=== PATIENT | female | born 1985 | race Caucasian/White ===

== ENCOUNTER → 2017-12-11 14:12 | Outpatient (CLI) | payer SELFPAY ==
[2017-12-11 15:41] LABS: Absolute Lymphocyte Count 1.39 X10^3/ul (0.83-4.51); Absolute Neutrophil Count 5.6 X10^3/uL (2.0-7.7); Basophil# 0.02 X10^3/uL; Basophil% 0.3 % (0-1); Eosinophil# 0.16 X10^3/uL; Eosinophils% 2.1 % (0-5); Hematocrit 37.2 % (37-47); Hemoglobin 12.6 g/dl (12.0-15.0); Lymphocyte # 1.39 X10^3/ul (4.0); Lymphocyte % 18.1 % (19-41); Mean Corp Hgb Conc 33.9 g/gl (32-36); Mean Corpuscular Hgb 28.4 pg (27.0-32.0); Mean Corpuscular Volume 83.8 fL (81-99); Monocyte# 0.51 X10^3/uL; Monocyte% 6.6 % (0-10); Neutrophil % 72.8 % (47-70); Platelet Count 260 K/mm3 (150-450); RBC Distribution Width CV 13.8 % (11.6-14.6); RBC Distribution Width SD 42.3 fl (35.1-43.9); Red Blood Count 4.44 M/mm3 (4.2-5.4); White Blood Count 7.7 K/mm3 (4.4-11.0)
[2017-12-11 15:43] LABS: POSITIVE COUNT NO; POSITIVE DIFFERENTIAL NO; POSITIVE MORPHOLOGY NO
[2017-12-11 15:49] LABS: Color, Urine Yellow (Yellow); Glucose, Dipstick Normal (Normal); Ketone-Dipstick Negative (Negative); Leukocyte Esterase-Dipstick 25 /ul (Negative); Nitrite-Dipstick Negative (Negative); Occult Blood-Urine 10 /ul (Negative); Protein-Dipstick Negative (Negative); Urine Bilirubin Dipstick Negative (Negative); Urine Clarity Clear (Clear); Urine Urobilinogen Normal (Normal)
[2017-12-11 17:17] LABS: Chlamydia Trachomatis by PCR Negative (Negative); Neisserai gonorrhoeae by PCR Negative (Negative); Probe Check PASS; Sample Adequacy Control PASS; Specimen Processing Control PASS
[2017-12-12 02:59] LABS: Prenatal RPR NONREACTIVE (NONREACTIVE)
[2017-12-12 10:53] LABS: HIV - WCH Non-Reactive (Nonreactive); Rubella IgG > 500.0 IU/mL
[2017-12-14 06:24] LABS: HEPATITIS B SURFACE AG Negative (Negative); Hep C Antibodies <0.1 s/co ratio (0.0-0.9)
[2017-12-16 15:09] LABS: HPV Reflexed? NOT INDICATED
== END ==
PROVIDERS: Visit Provider Obstetrics & Gynecology
DX: Z34.81 Encounter for supervision of other normal pregnancy, first trimester (principal); Z12.4 Encounter for screening for malignant neoplasm of cervix; Z11.3 Encounter for screening for infections with a predominantly sexual mode of transmission
CPT/HCPCS: 36415; 81002; 85025; 86703; 86762; 86803; 87340; 87491; 87591; 88175; G0145

== ENCOUNTER → 2018-05-12 20:37 | Outpatient (CLI) | payer OTHER, SELFPAY ==
[2018-05-12 22:32] LABS: Group B Strep DNA By PCR Negative (Negative)
[2018-05-12 22:33] LABS: Internal Control PASS; Probe Check PASS; Specimen Processing Control PASS
== END ==
PROVIDERS: Visit Provider Obstetrics & Gynecology
DX: Z36.85 Encounter for antenatal screening for Streptococcus B (principal)
CPT/HCPCS: 87081; 87653

== ENCOUNTER 2018-06-04 13:35 | Inpatient (IN) | payer SELFPAY ==
[2018-06-04 14:09] VITALS: BMI 37.0
[2018-06-04] MEDS: Lactated Ringers 1,000 ML 50 ML IV ×2 (14:30→16:10)
[2018-06-04 14:47] LABS: Hematocrit 36.5 % (37-47); Hemoglobin 12.5 g/dl (12.0-15.0); Mean Corp Hgb Conc 34.2 g/gl (32-36); Mean Corpuscular Hgb 28.5 pg (27.0-32.0); Mean Corpuscular Volume 83.1 fL (81-99); Mean Platelet Vol. 9.5 fl (6.2-12.0); Platelet Count 235 K/mm3 (150-450); RBC Distribution Width CV 14.7 % (11.6-14.6); RBC Distribution Width SD 43.8 fl (35.1-43.9); Red Blood Count 4.39 M/mm3 (4.2-5.4); White Blood Count 16.4 K/mm3 (4.4-11.0)
[2018-06-04 14:53] LABS: Scan Indicated on CBC? Y/N NO
[2018-06-04 15:01] LABS: AST(SGOT) 11 U/L (15-37); Alanine Aminotransfer ALT/SGPT 18 U/L (13-56); Creatinine, Serum 0.64 mg/dL (0.55-1.02); EST Glomerular Filtration Rate 115 mL/min (>60); Est Glom Filt Rate - Afr Amer 139 mL/min (>60); Uric Acid 4.7 mg/dL (2.6-6.0)
[2018-06-04] MEDS: fentaNYL-bupivacaine (epidural) 100 ML BAG EPIDURAL (16:25)
[2018-06-04] MEDS: Oxytocin 30 units/NS 500 ml 30 UNITS/500 ML IV.SOLN 334 UNITS IV (18:25)
--- NOTE | 2018-06-04 18:44 | PCM.DCVAG ---
Discharge Diet: No Restrictions Discharge Activity: May Shower, May Take a Tub Bath May resume sexual activity in: 4-6 weeks Additional Activity Instructions:: Nothing in the vagina for 4-6 weeks. You may return to work/school in 6 weeks. Call your doctor if you observe: Fever of 101 or Higher, Inability to urinate, Inability to have a bowel movement, Using more than one pad per hour Additional Instructions: If you experience any of the following, contact your healthcare provider. Bleeding that soaks a pad every hour for 2 hours Unrelieved incision or abdominal pain Swelling, redness, discharge or bleeding from your incision or episiotomy site Your incision begins to separate Problems urinating (including inability to urinate or burning while urinating). Visual changes Severe headache Flu-like symptoms Pain or redness in one of both of your breasts Pain, warmth, tenderness or swelling in your legs, especially the calf area Frequent nausea and vomiting Symptoms of depression or anxiety If you experience any of the following, call 911 or go to the nearest Emergency Room. Chest pain Problems breathing Seizure activity Partial or complete paralysis of a body part, slurred speech, weakness or drooping of the face, or a sudden inability to walk or hold your balance Allergies/Adverse Reactions: Allergies No Known Allergies Allergy (Verified 06/04/18 15:43) Please Follow Up With: John Magallanes MD - [phone] When: Call to make an appointment with your doctor in 6 weeks. Primary Care Physician: Care Physician,No Primary [Primary Care Provider] - Test Results: Test results from this visit will be discussed in further detail at your follow-up appointment, if applicable.
--- NOTE | 2018-06-04 18:45 | PCM.OB.VAG ---
Vaginal Delivery Maternal Presentation: Active Labor Amniotic Membrane Rupture Type: Artificial Amniotic Fluid Description: Clear Final OWEN: 06/13/18 Final OWEN Source: US <20 weeks Gestational age: 38 Weeks and 6 Days [place] doctor who attended delivery (if requested by OB): Lian Skinner - Respiratory Distress Date of Procedure: 06/04/18 Pre-Operative Diagnosis: IUP; Prior Post-Operative Diagnosis: IUP; Prior Surgery/ Procedure Performed: Vacuum Assisted Vaginal Delivery Type of Anesthesia: Epidural Description of Procedure: Spontaneous vaginal delivery of a viable male infant with Apgars of 4/6/7 from an occiput anterior presentation with clear amniotic fluid and normal three-vessel placenta. Cleft palate noted in nursery. Extra digits. No episiotomy. First-degree midline laceration repaired with 3-0 Vicryl suture under epidural. Kiwi vacuum used ?2 gentle pulls from low outlet to expedite delivery of the head due to deep decelerations with contractions. No pop offs. Sponge counts okay. Delivery physician: John Magallnaes MD. Presentation: Vertex Placental Delivery Description: Spontaneous Placenta Disposition: [facility] Cord Vessel Description: 3 Vessels Cord Entanglement: None Estimated Blood Loss: <250 cc Infant A gender: Male (1 minute): 4 (5 minute): 6 Episiotomy Description: None Laceration: Midline, 1st degree Medications given after delivery: IV Pitocin Complications: None
--- NOTE | 2018-06-04 18:49 | OP.PCM_ITS ---
Vaginal Delivery Maternal Presentation: Active Labor Amniotic Membrane Rupture Type: Artificial Amniotic Fluid Description: Clear Final OWEN: 06/13/18 Final OWEN Source: US <20 weeks Gestational age: 38 Weeks and 6 Days [place] doctor who attended delivery (if requested by OB): Lian Skinner - Respiratory Distress Date of Procedure: 06/04/18 Pre-Operative Diagnosis: IUP; Prior Post-Operative Diagnosis: IUP; Prior Surgery/ Procedure Performed: Vacuum Assisted Vaginal Delivery Type of Anesthesia: Epidural Description of Procedure: Spontaneous vaginal delivery of a viable male infant with Apgars of 4/6/7 from an occiput anterior presentation with clear amniotic fluid and normal three- vessel placenta. Cleft palate noted in nursery. Extra digits. No episiotomy. First-degree midline laceration repaired with 3-0 Vicryl suture under epidural. Kiwi vacuum used ?2 gentle pulls from low outlet to expedite delivery of the head due to deep decelerations with contractions. No pop offs. Sponge counts okay. Delivery physician: John Magallanes MD. Presentation: Vertex Placental Delivery Description: Spontaneous Placenta Disposition: [facility] Cord Vessel Description: 3 Vessels Cord Entanglement: None Estimated Blood Loss: <250 cc A gender: Male (1 minute): 4 (5 minute): 6 Episiotomy Description: None Laceration: Midline, 1st degree Medications given after delivery: IV Pitocin Complications: None
[2018-06-04] MEDS: Oxytocin 30 units/NS 500 ml 30 UNITS/500 ML IV.SOLN 167 UNITS IV (18:55)
[2018-06-04 23:53] VITALS: BP 139/80; PULSE 82; RESP 18; TEMP 36.3
[2018-06-05 04:21] VITALS: BP 147/85; PULSE 72; RESP 18; TEMP 36.3
--- NOTE | 2018-06-05 04:58 | PCM.PN.OB ---
Subjective: Patient without complaints. Minimal vaginal bleeding. Wants to go to [place] as baby was transferred for continued care and possible heart anomalies. - Physical Exam Vital Signs Temp Pulse Resp BP 97.3 F L 72 18 147/85 H 06/05/18 04:21 06/05/18 04:21 06/05/18 04:21 06/05/18 04:21 Weight: 215 lb 13.321 oz Body Mass Index (BMI) 37.0 Intake and Output for Last 24 Hours 06/03/18 06/04/18 06/05/18 23:59 23:59 23:59 Output Total 200 / 200 Balance -200 / -200 Laboratory Tests Past 24 Hrs 06/04/18 06/04/18 06/04/18 14:30 14:30 14:30 WBC 16.4 H RBC 4.39 Hgb 12.5 Hct 36.5 L MCV 83.1 MCH 28.5 MCHC 34.2 RDW 14.7 H RDW Differential 43.8 Plt Count 235 MPV 9.5 PT Cancelled INR Cancelled APTT Cancelled Creatinine 0.64 Est GFR (MDRD) Af Amer 139 Est GFR (MDRD) Non-Af 115 Uric Acid 4.7 AST 11 L ALT 18 Blood Type Antibody Screen 06/04/18 14:30 WBC RBC Hgb Hct MCV MCH MCHC RDW RDW Differential Plt Count MPV PT INR APTT Creatinine Est GFR (MDRD) Af Amer Est GFR (MDRD) Non-Af Uric Acid AST ALT Blood Type A POSITIVE Antibody Screen NEGATIVE Medical Necessity - Tobacco Use Smoking Status: Never smoker Assessment/Plan Doing well. Will release to home with routine instructions.
[2018-06-05] MEDS: Ibuprofen 600 MG Tablet PO (06:33)
[2018-06-05 08:30] VITALS: BP 165/109; PULSE 70; RESP 16; TEMP 36.7
[2018-06-05 08:40] VITALS: BP 133/69
== END 2018-06-05 09:25 | disposition home or self-care (01) | DRG 775 ==
PROVIDERS: Admitting Provider Obstetrics & Gynecology; Visit Provider Obstetrics & Gynecology
DX: O76 Abnormality in fetal heart rate and rhythm complicating labor and delivery (principal); Z37.0 Single live birth; Z3A.38 38 weeks gestation of pregnancy; O34.219 Maternal care for unspecified type scar from previous cesarean delivery; O70.0 First degree perineal laceration during delivery; O24.429 Gestational diabetes mellitus in childbirth, unspecified control
CPT/HCPCS: 59050; 82565; 84450; 84460; 84550; 85027; 86850; 86900; 99218; J7120; G0378

== ENCOUNTER → 2019-01-19 | Outpatient (CLI) | payer SELFPAY ==
[2019-01-20 15:02] LABS: Chlamydia Trachomatis by PCR Negative (Negative); Neisserai gonorrhoeae by PCR Negative (Negative); Probe Check PASS; Sample Adequacy Control PASS; Specimen Processing Control PASS
== END | disposition home or self-care (01) ==
LOC: LABSPEC 01-20 09:32
PROVIDERS: Visit Provider Obstetrics & Gynecology
DX: Z11.3 Encounter for screening for infections with a predominantly sexual mode of transmission (principal)
CPT/HCPCS: 87491; 87591

== ENCOUNTER → 2019-07-07 14:09 | Outpatient (CLI) | payer SELFPAY | PROVIDERS: Visit Provider Advanced Practice Midwife | DX: Z36.85 Encounter for antenatal screening for Streptococcus B (principal) | CPT/HCPCS: 87081 ==

== ENCOUNTER 2019-07-28 11:42 | Inpatient (IN) | payer SELFPAY ==
[2019-07-28 10:31] VITALS: BMI 37.5
[2019-07-28] MEDS: Lactated Ringers 1,000 ML 200 ML IV (12:20)
[2019-07-28 12:45] LABS: Absolute Lymphocyte Count 1.22 X10^3/uL (0.83-4.51); Absolute Neutrophil Count 9.5 X10^3/uL (2.0-7.7); Basophil# 0.04 X10^3/uL; Basophil% 0.3 % (0-1); Eosinophil# 0.04 X10^3/uL; Eosinophils% 0.3 % (0-5); Hematocrit 39.5 % (37-47); Hemoglobin 13.2 g/dL (12.0-15.0); Lymphocyte # 1.22 X10^3/ul (4.0); Lymphocyte % 10.6 % (19-41); Mean Corp Hgb Conc 33.4 g/dL (32-36); Mean Corpuscular Hgb 28.2 pg (27.0-32.0); Mean Corpuscular Volume 84.4 fL (81-99); Mean Platelet Vol. 9.7 fl (6.2-12.0); Monocyte# 0.63 X10^3/uL; Monocyte% 5.5 % (0-10); NRBC Flagged by Analyzer 0 % (0-5); Neutrophil # 9.51 X10^3/uL (2.7-7.7); Neutrophil % 82.3 % (47-70); Platelet Count 217 K/mm3 (150-450); RBC Distribution Width CV 14.3 % (11.6-14.6); RBC Distribution Width SD 43.5 fl (35.1-43.9); Red Blood Count 4.68 M/mm3 (4.2-5.4); White Blood Count 11.6 K/mm3 (4.4-11.0)
--- NOTE | 2019-07-28 12:45 | PCM.HP.BLA ---
History and Physical Date of Admission: 07/28/19 OG ANTEPARTUM RECORD - HISTORY AND PHYSICAL (07/28/2019) Name: GLORY LAUGHLIN History of This : This is a 33-year-old patient who presents in early labor. care has been remarkable for hypothyroidism. She also had a prior section and vaginal after . The patient is also on Aldomet for elevated blood pressures during her and recent blood pressures have been mildly elevated. Her uric acid is also elevated (5.8). Patient had a previous trisomy 13 of which the baby approximately 6 days after . OB Physician: RAVINDER [place]'s Physician: Dr Nacho Aguayo ...................................................................... : 1985 Age: 33 Address: [address] [place] [address] Phone: (h) [phone] Insurance Carrier: Emergency Contact: GINNY LAUGHLIN [phone] ...................................................................... Final OWEN: 07/29/19 By Ultrasound: 12 weeks 6 days PARITY: (G-Total Pregnancies P-Fullterm,Premature,Induced AB,Spont AB, Ectopics, Multiple,Living) OWEN CONFIRMATION: By LMP: 10/22/18 By First Ultrasound Exam: 07/28/19 Final OWEN: 07/29/19 GBS: Original Ordering Provider: Stepan Weeman NOLAN Culture Group B Beta Streptococcus is not isolated. Original Ordering Provider: JASON Schwarz Comments: VAGINAL/RECTAL NOLAN Culture Group B Beta Streptococcus is not isolated. OB PROBLEM LIST: Declines AFP Hypothyroid --start Synthroid 50 mcg daily then repeat TSH in 4-5 weeks On Aldomet 250 mg BID for HTN NST twice weekly Prior then --plan Second baby 6 days after delivery from trisomy 13 ALLERGIES: No Known Allergies MEDICATIONS: Adrenal Supplement [No Strength] One pill by mouth once a day Fish Oil 1,000 mg (120 mg-180 mg) capsule 1 PO QD methyldopa 250 mg tablet One pill by mouth three times a day 28 mg iron-800 mcg tablet One pill by mouth once a day Synthroid 50 mcg tablet 1 daily SOCIAL HISTORY: Smoking - Never Alcohol Use - None Diet - no special diet Lifestyle - moderate stress lifestyle and Exercise - active work Employer - [employer] Job Description - Illicit Drug Use - None Sexual Activity - Spouse-Sig Other Name - Dat Cosme Laughlin Spouse-Sig Other Occupation - [employer] Children Name(s) - Zainab(16) Cosme Del Toro 18) PRIOR DELIVERY HISTORY DEL DATE GEST LAB WT LB WT OZ TYPE ANES LABOR TX Sep 13 39 18 7 6 C-Sec Epidural No Jun 16 38 21 6 9 Vag Epidural No ANTEPARTUM FLOW CHART VISIT GE RTC FU F F VT U U DATE WK MD WKS HT PN HR M SS BP ED WT VT GL D EF ST __ ____ ___ __ __ ___ __ __ __ ___ __ __ __ ___ __ 29 Jun 39 JMW .2 38 + + 144/86 sl 206 - - 3 80 -2 22 Jun 38 JMW 1 37 V + + 120/76 0 210 - - 1 50 -2 15 Jun 37 JMW 1 37 + + 132/86 sl 205 - - 09 Jun 36 KW 1 35 V + + 120/78 tr 207 - - ft 30 -3 01 Jun 35 JMW 1 35 + + 124/82 tr 209 - - 17 May 33 JMW 2 33 V + + 120/78 sl 207 - - 10 May 32 JMW 1 32 + + 144/88 0 207 - - May 28 JMW 2 32 + + 123/84 0 209 - - 06 May 25 JMW 3 27 + + 122/70 0 206 tr - Apr 21 JMW 3 24 + + 116/64 tr 205 - - Mar 18 JMW 4 20 + + 120/76 0 202 tr - February 10 JMW 4 15 + + 122/66 0 203 tr - ANTEPARTUM NOTE(S): Jul 27 2019: Doing Well, no PIH sxs; start BR; ck PIH labs Jul 20 2019: Doing Well Jul 13 2019: NST Today,Good FM,Feeling Well Jul 07 2019: Jun 29 2019: Ctxs-mild, Feeling Well, start NST weekly Jun 15 2019: Ctxs-mild, Good FM Jun 08 2019: inc aldomet to TID May 25 2019: feeling well. May 04 2019: Doing Well, 1hrGTT,CBC drawn Apr 13 2019: Glucola/Instruction Given,Good FM Mar 16 2019: Sono Today,Good FM,Feeling Well Feb 09 2019: NOB and PNV Today,Feeling Better, Declines AFP COMPREHENSIVE ANTEPARTUM NOTE(S): Jul 12 2019: H taken to OB. tkg Jul 11 2019: GBS negative. EB Jul 07 2019: Feeling well; reports active FM; denies UCs, VB, LOF; VE per patient request ft / 30 /-2 , soft, posterior/midline.anterior; GBS done today; discussed warning signs, s/s Labor, when to call/come in; RTO 3 days for NST, 1 week for PNV - KVW Jun 08 2019: Glory presents for her PNV. SHe is reporting good FM and denies any swelling in her extremities. Initial BP was sl elevated at 144/88 and repeat lying on Lt side is 128/74. Pt denies any AMAYA's or Blurred Vision. She continues on the Aldomet 250mg BID. JT May 07 2019: Hgb 11.4 g/dl. glucola 115. EB Feb 09 2019: Glory presents here today for PNV and NOB. 33 y.o. G 3 P 1 (last baby passed at 6 days of age of Trisomy 13 in 05/2018) 15 weeks 5 days and reports feeling well with periodic fatigue. 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 Plans with this as she had with last in 05/2018 at [facility] and undecided regarding an Epidural, as she admits she had one with last and was glad she did. Spouse(Dat Aguiar) is a full-time ortiz and supportive of this . Currently taking Synthroid 50 mcg daily for Hypothyroidism and Methyldopa 250 mg bid for HTN as well as her OTC Vitamin. Brief review of good nutrition and healthy snacks(Dietary handout given) with ideal weight gain of 20-25 lbs and reminded of need to drink 1-2 gallons of water/fluids daily with benefits of same given, as well as she plans to breast feed if all goes well. Discussed major body changes and common discomforts in with helpful hints for each with handout given. Emotional changes reviewed from first through third trimester. Genetic screening form filled out and declines AFP, CF testing with consent signed. Had chickenpox as a child and has no house cats. labs were drawn at last appointment and reviewed same this appointment. LYLE NEW Jan 20 2019: A positive. Hgb 12.3 g/dl. TSH high. Check free T3 and free T4 EB Jan 19 2019: Glory presents here today for Missed Menses appointment. 33 y.o. G 3 P 1 non-smoker with history of regular menses and LMP of 10-22-18 lasting her average of 4 days. Positive UPT today in our Office. Presents today at 12 weeks 5 days with an approximate OWEN of 07-29-19 and plans at [facility]. History of in 05/2018 with baby boy with Trisomy 13 and 6 days after . Denies spotting/bleeding thus far in . Slight nausea that admits is getting better and tender breasts. Currently taking an OTC Vitamin with Educational Materials given. Medication list up-dated and PCP had put her on Methyldopa 250 mg once daily and has her keeping track of her Blood Pressure's at home as well. LYLE Jan 19 2019: ok REVIEW OF SYSTEMS: GENERAL - Denies fever, or chills SKIN - Denies rash, new skin lesions, or change in moles EYES - Denies blurred vision, or change in visual acuity EARS - Denies ear pain, or difficulty hearing NOSE - Denies nasal congestion, discharge, or bleeding MOUTH - Denies sore throat, or difficulty swallowing NECK - Denies pain or swelling RESPIRATORY - Denies shortness of breath, cough, wheezing CARDIOVASCULAR - Denies palpitations, chest pain, orthopnea, PND, peripheral edema, syncope or claudication GASTROINTESTINAL - Denies nausea, vomiting, diarrhea, constipation, Denies abdominal pain, melena and or bright red blood GENITOURINARY - Denies dysuria, frequency of urination, urgency, or hesitancy MUSCULOSKELETAL - Denies joint or muscle pain, or back pain NEUROLOGICAL - Denies localized numbness, weakness, or tingling PSYCHIATRIC - Denies depression, anxiety, substance abuse or suicide attempts ENDOCRINE - Denies heat or cold intolerance, weight loss or gain, increasing thirst HEMATO-IMMUNOLOGIC - Denies easy bruising, bleeding, oral ulcerations or recurrent infections GENETICS SCREENING: Age 35+ years: No Thalassemia: No Neural Tube Defect: No Down Syndrome: Yes HAIR-SACHS: No Sickle Cell Disease: No Hemophilia: No Musc. Dystrophy: No Cystic Fibrosis: No-declines screening Dolomite Chorea: No Mental Retardation: No Fragile X: No Other genetic: No Other defects: No SABs/still births: No Drugs since LMP: No INFECTION HISTORY: High risk AIDS: No High risk Hepatitis: No Exposed to TB: No Exposed to Herpes: No Rash/viral illness since LMP: No History of STD: No MENSTRUAL HISTORY: *Menses Amount/Duration: 4 daysMenses Regularity: RegularFrequency: monthlyMenarche (Age Onset): 13* PAST SUMMARY: PARITY: 1. Total Pregnancies............ 3 2. Full Term Pregnancies........ 1 3. Premature.................... 0 4. Abortions - Induced.......... 0 5. Abortions - Spontaneous...... 0 6. Ectopics..................... 0 7. Multiple Births.............. 0 8. Living Children.............. 1 PAST #1: Date of :.................. 09/03/16 Gestation Weeks:................ 39 Length of labor(hours):......... 18 Sex:............................ M Weight-lbs:............... 7 Weight-oz:................ 6 Type of Delivery:............... C-Sect Type of Anesthesia:............. Epidural Place of Delivery:.............. [facility] Treatment of Labor?:.... No Comment: PIH/ DISTRESS PAST #2: Date of :.................. 06/04/18 Gestation Weeks:................ 38 Length of labor(hours):......... 21 Sex:............................ M Weight-lbs:............... 6 Weight-oz:................ 9 Type of Delivery:............... Vag Type of Anesthesia:............. Epidural Place of Delivery:.............. [place] Treatment of Labor?:.... No Comment: PASSED AFTER 6 DAYS PHYSICAL EXAMINATION General Appearence: 33 yo female in no acute distress Vital Signs: AF, VSS Heart: RRR without rubs or gallops Lungs: CTA x 2 Breasts: deferred Abdomen: gravid Pelvis: Cervix: 4/85 AROM with clear fluid Presentation: cephalic Station: -2 Fetus: Size: AGA Movement: present Heart: present Labs for : GLORY LAUGHLIN since 11/01/2018 ORDER DATEIN DESCRIPTION VALUE UNITS RANGE A+ COMMENT CBC W/DIFF, AUTOMATED 07/28/19 NOTE Original Ordering Provider: Stepan Magallanes WBC 11.6 K/mm3 4.4-11.0 H RBC 4.68 M/mm3 4.2-5.4 HGB 13.2 g/dL 12.0-15.0 HCT 39.5 % 37-47 MCV 84.4 fL 81-99 MCH 28.2 pg 27.0-32.0 MCHC 33.4 g/dL 32-36 RDW CV 14.3 % 11.6-14.6 RDW SD 43.5 fl 35.1-43.9 PLT 217 K/mm3 150-450 MPV 9.7 fl 6.2-12.0 NEUT% 82.3 % 47-70 H LY% 10.6 % 19-41 L MONO% 5.5 % 0-10 EO% 0.3 % 0-5 BASO% 0.3 % 0-1 IM GRAN % 1.000 % 0.0-0.9 H IG% - Immature Granulocytes (promyelocytes, myelocytes and metamyelocytes) > 1% indicates that a LEFT SHIFT is Present. ABSOLUTE NEUT 9.5 X10 3/uL 2.0-7.7 H ABSOLUTE LYMPH 1.22 X10 3/uL 0.83-4.51 NRBC, FLAGGED 0 % 0-5 CBC + DIFF 07/27/19 NOTE Original Ordering Provider: STEPAN MAGALLANES CBC + DIFF CBC-COMPLETE BLOOD COUNT WBC 8.2 x 10EE3/UL 4.5 - 10.8 RBC 4.34 x 10EE6/UL 4.10 - 5.30 HEMOGLOBIN 12.1 g/dl 12.0 - 16.0 HEMATOCRIT 35.7 % 34.0 - 46.0 MCV 82 fl 80 - 99 MCH 28 pg 27 - 33 MCHC 34 X10 3 32 - 36 RDW/CV 15.0 % 12.0 - 15.6 PLATELET 211 x10EE3/UL 150 - 450 MPV 8.6 fl 6.6 - 10.5 AUTOMATED DIFFERENTIAL NEUT % 65.5 % 46.0 - 76.0 LYMPH % 19.5 % 20.0 - 45.0 L MONOS % 12.4 % 0.0 - 10.0 H EO % 1.7 % 0.0 - 7.0 BASO % 0.9 % 0.0 - 2.0 LYMPH # 1.60 x10EE3/UL 0.80 - 2.80 NEUT # 5.40 x10EE3/UL 1.50 - 7.10 MONO # 1.00 x10EE3/UL 0.20 - 1.00 EO # 0.10 x10EE3/UL 0.00 - 0.50 BASO # 0.10 x10EE3/UL 0.00 - 0.10 MANUAL DIFF SEE BELOW BANDS 1 % 0 - 5 SEGS 69 % 50 - 70 LYMPH 22 % 20 - 40 MONOS 7 % 0 - 8 EO 1.0 % 0.0 - 4.0 MORPHOLOGY REVIEWED Reviewed by STEPAN URIC ACID 07/27/19 NOTE Original Ordering Provider: CELSO JUANI URIC ACID 5.8 mg/dl 2.3 - 6.6 SGPT (ALT) 07/27/19 NOTE Original Ordering Provider: STEPAN [place] JUANI ALT/SGPT 10 U/L 8 - 35 SGOT (AST) 07/27/19 NOTE Original Ordering Provider: STEPAN [place] JUANI AST/SGOT 10 U/L 13 - 39 L CULTURE, GROUP B STREPTOCOCCUS 07/07/19 NOTE Original Ordering Provider: JASON Schwarz Comments: VAGINAL/RECTAL NOLAN Culture Group B Beta Streptococcus is not isolated. Reviewed by ANH TSH 05/04/19 NOTE Original Ordering Provider: STEPAN [place] ALYARNULFO TSH 2.80 uIU/ml 0.34 - 5.60 Reviewed by ANH CBC + DIFF 05/04/19 NOTE Original Ordering Provider: STEPAN [place] JUANI CBC + DIFF CBC-COMPLETE BLOOD COUNT WBC 9.9 x 10EE3/UL 4.5 - 10.8 RBC 4.02 x 10EE6/UL 4.10 - 5.30 L HEMOGLOBIN 11.4 g/dl 12.0 - 16.0 L HEMATOCRIT 32.9 % 34.0 - 46.0 L MCV 82 fl 80 - 99 MCH 28 pg 27 - 33 MCHC 35 X10 3 32 - 36 RDW/CV 14.1 % 12.0 - 15.6 PLATELET 279 x10EE3/UL 150 - 450 MPV 7.5 fl 6.6 - 10.5 AUTOMATED DIFFERENTIAL NEUT % 79.0 % 46.0 - 76.0 H LYMPH % 13.9 % 20.0 - 45.0 L MONOS % 4.9 % 0.0 - 10.0 EO % 1.5 % 0.0 - 7.0 BASO % 0.7 % 0.0 - 2.0 LYMPH # 1.40 x10EE3/UL 0.80 - 2.80 NEUT # 7.90 x10EE3/UL 1.50 - 7.10 H MONO # 0.50 x10EE3/UL 0.20 - 1.00 EO # 0.10 x10EE3/UL 0.00 - 0.50 BASO # 0.10 x10EE3/UL 0.00 - 0.10 MANUAL DIFF SEE BELOW BANDS 2 % 0 - 5 SEGS 69 % 50 - 70 LYMPH 20 % 20 - 40 MONOS 7 % 0 - 8 EO 1.0 % 0.0 - 4.0 BASO 1.0 % 0.0 - 2.0 MORPHOLOGY REVIEWED Reviewed by ANH GLUCOSE CHALLENGE 50GM 1 HOUR 05/04/19 NOTE Original Ordering Provider: STEPAN MAGALLANES GLUCOSE CHALLENGE 50GM 1 HOUR GLUCOSE CHALLENGE 50 GMS 1 HOUR GLUCOSE 1HR 115 mg/dl 70 - 140 Reviewed by ANH GODWIN 3 [CCL] 01/19/19 NOTE Original Ordering Provider: STEPAN GODWIN 3 [CCL] _TATO 3 [CCL]_ TATO 3 [CCL] Reported: 01/22/2019 12:59 Status=F TEST RESULT FLAG RANGE UNITS RPR Non Reactive NR 01/[email or web address] Hepatitis B Surf. Ag Negative NEGAT 01/[email or web address] Rubella IgG Ab, Qual Positive A NEGAT 01/[email or web address] Sample is considered positive for IgG antibodies to rubella virus. A positive result indicates previous exposure to Rubella virus or vaccination. Rubella IgG Ab 14.30 Index 01/[email or web address] Value Index values are interpreted as follows: Negative specimens <0.90 Equivocol specimens 0.90 to 0.99 Positive specimens >0.99 The magnitude of the measured result is not indicative of the amount of antibody present. [facility] [address] [place] [address] Temi Oswald M.D. [id number] Reviewed by STEPAN HEPATITIS C AB IA [CCL] 01/19/19 NOTE Original Ordering Provider: STEPAN MAGALLANES HEPATITIS C AB IA [CCL] _HEPATITIS C AB IA [CCL]_ HEPATITIS C AB IA [CCL] Reported: 01/22/2019 12:59 Status=F TEST RESULT FLAG RANGE UNITS Hepatitis C Ab IA Negative NEGAT 01/[email or web address] [facility] [address] [place] [address] Temi Oswald M.D. [id number] Reviewed by STEPAN T3, FREE [CCL] 01/19/19 NOTE Original Ordering Provider: STEPAN MAGALLANES T3, FREE [CCL] _T3, FREE(CCL)_ T3, FREE [CCL] Reported: 01/21/2019 14:08 Status=F TEST RESULT FLAG RANGE UNITS Free T3 2.8 2.3-4.1 pg/mL 01/[email or web address] [facility] [address] [place] [address] Temi Oswald M.D. [id number] Reviewed by STEPAN T4-FREE (FREE THYROXINE) 01/19/19 NOTE Original Ordering Provider: STEPAN MAGALLANES T4 FREE 0.57 ng/dl 0.61 - 1.12 L *SPECIMENS FROM PATIENTS WHO ARE UNDERGOING BIOTIN THERAPY AND/OR INGESTING BIOTIN SUPPLEMENTS MAY HAVE FALSE HIGH RESULTS. Reviewed by STEPAN TSH 01/19/19 NOTE Original Ordering Provider: STEPAN MAGALLANES TSH 7.22 uIU/ml 0.34 - 5.60 H Reviewed by STEPAN BAE TYPE 01/19/19 NOTE Original Ordering Provider: STEPAN BAE TYPE TYPE, Rh, AND SCREEN ABO A RH POS ANTIBODY SCR negative Reviewed by ANH URINALYSIS 01/19/19 NOTE Original Ordering Provider: STEPAN MAGALLANES URINALYSIS URINALYSIS SPECIMEN TYPE Clean catch COLOR p.yel NORMAL: YELLOW CLARITY clear NORMAL: CLEAR PH 7 NORMAL: 5.0-8.0 PROTEIN NEG NORMAL: NEGATIVE GLUCOSE NORM NORMAL: NORMAL KETONE NEG NORMAL: NEGATIVE BILIRUBIN NEG NORMAL: NEGATIVE BLOOD NEG NORMAL: NEGATIVE UROBILINOG NORM NORMAL: NORMAL SP GRAVITY 1.010 NORMAL: 1.010-1.030 NITRITE NEG NORMAL: NEGATIVE LEUKOCYTES NEG NORMAL: NEGATIVE MICROSCOPIC NOT INDICATED Reviewed by ANH CBC + DIFF 01/19/19 NOTE Original Ordering Provider: STEPAN MAGALLANES CBC + DIFF CBC-COMPLETE BLOOD COUNT WBC 7.0 x 10EE3/UL 4.5 - 10.8 RBC 4.12 x 10EE6/UL 4.10 - 5.30 HEMOGLOBIN 12.3 g/dl 12.0 - 16.0 HEMATOCRIT 34.7 % 34.0 - 46.0 MCV 84 fl 80 - 99 MCH 30 pg 27 - 33 MCHC 35 X10 3 32 - 36 RDW/CV 13.5 % 12.0 - 15.6 PLATELET 268 x10EE3/UL 150 - 450 MPV 7.4 fl 6.6 - 10.5 AUTOMATED DIFFERENTIAL NEUT % 72.5 % 46.0 - 76.0 LYMPH % 17.8 % 20.0 - 45.0 L MONOS % 6.7 % 0.0 - 10.0 EO % 2.6 % 0.0 - 7.0 BASO % 0.4 % 0.0 - 2.0 LYMPH # 1.20 x10EE3/UL 0.80 - 2.80 NEUT # 5.10 x10EE3/UL 1.50 - 7.10 MONO # 0.50 x10EE3/UL 0.20 - 1.00 EO # 0.20 x10EE3/UL 0.00 - 0.50 BASO # 0.00 x10EE3/UL 0.00 - 0.10 MANUAL DIFF N/A MORPHOLOGY N/A Reviewed by ANH VARELA/KARTHIKEYAN [facility] BY PCR 01/19/19 NOTE Original Ordering Provider: Stepan Magallanes [facility] PCR Negative Negative NG BY PCR Negative Negative Reviewed by STEPAN Impression /Plan: 40+ week intrauterine in early labor with mild PIH. Plan to have a vaginal after . Preparations in progress for delivery.
[2019-07-28] MEDS: Lactated Ringers 500 ML 999 ML IV ×2 (12:56→14:17)
[2019-07-28] MEDS: fentaNYL-bupivacaine (epidural) 100 ML BAG EPIDURAL (13:42)
[2019-07-28] MEDS: Amnioinfusion- 0.9% NS 1,000 ML IV.SOLN. 200 ML INTRA-UTER (14:59)
[2019-07-28] MEDS: Oxytocin 30 units/NS 500 ml 30 UNITS/500 ML IV.SOLN 334 UNITS IV (18:03)
--- NOTE | 2019-07-28 18:36 | PCM.OPRPT ---
Vaginal Delivery Maternal Presentation: Active Labor Amniotic Membrane Rupture Type: Artificial Amniotic Fluid Description: Clear Final OWEN: 07/29/19 Final OWEN Source: US <20 weeks Gestational age: 39 Weeks and 6 Days Date of Procedure: 07/28/19 Pre-Operative Diagnosis: Gestational Hypertension, Prior Section Post-Operative Diagnosis: Gestational Hypertension, Prior Section Surgery/ Procedure Performed: Vacuum Assisted Vaginal Delivery Type of Anesthesia: Epidural Description of Procedure: Spontaneous vaginal delivery of a viable male with Apgars of 9/9 from an occiput anterior presentation with clear amniotic fluid and normal three-vessel placenta. No episiotomy. First-degree midline laceration repaired with 3-0 rapide suture under epidural. Kiwi vacuum used x2 gentle pulls from low outlet to expedite delivery of the head due to deep decelerations with each push. Sponges okay. Delivery physician: John Magallanes MD. Presentation: Vertex Placental Delivery Description: Spontaneous Placenta Disposition: [facility] Cord Vessel Description: 3 Vessels Cord Entanglement: None Estimated Blood Loss: 250 cc A gender: Male (1 minute): 9 (5 minute): 9 Episiotomy Description: None Laceration: Midline, 1st degree Medications given after delivery: IV Pitocin Complications: None
--- NOTE | 2019-07-28 18:42 | DCINST_ITS ---
Discharge Diet: No Restrictions May resume sexual activity in: 4-6 weeks Additional Activity Instructions:: Nothing in the vagina for 4-6 weeks. You may return to work/school in 6 weeks. Call your doctor if you observe: Fever of 101 or Higher, Inability to have a bowel movement, Using more than one pad per hour, Shortness of breath Additional Instructions: If you experience any of the following, contact your healthcare provider. * Bleeding that soaks a pad every hour for 2 hours * Unrelieved incision or abdominal pain * Swelling, redness, discharge or bleeding from your incision or episiotomy site * Your incision begins to separate * Problems urinating (including inability to urinate or burning while urinating). * Visual changes * Severe headache * Flu-like symptoms * Pain or redness in one of both of your breasts * Pain, warmth, tenderness or swelling in your legs, especially the calf area * Frequent nausea and vomiting * Symptoms of depression or anxiety If you experience any of the following, call 911 or go to the nearest Emergency Room. * Chest pain * Problems breathing * Seizure activity * Partial or complete paralysis of a body part, slurred speech, weakness or drooping of the face, or a sudden inability to walk or hold your balance Allergies/Adverse Reactions: Allergies No Known Allergies Allergy (Verified 06/04/18 15:43) Medications to take at Discharge Levothyroxine [Synthroid] 50 mcg PO DAILY 07/28/19 Methyldopa [Aldomet] 250 mg PO TID 07/28/19 Please Follow Up With: John Magallanes MD - [phone] When: Call to make an appointment with your doctor in 6 weeks. Primary Care Physician: Care Physician,No Primary [Primary Care Provider] - Test Results: Test results from this visit will be discussed in further detail at your follow- up appointment, if applicable.
--- NOTE | 2019-07-28 18:42 | PCM.DCVAG ---
Discharge Diet: No Restrictions May resume sexual activity in: 4-6 weeks Additional Activity Instructions:: Nothing in the vagina for 4-6 weeks. You may return to work/school in 6 weeks. Call your doctor if you observe: Fever of 101 or Higher, Inability to have a bowel movement, Using more than one pad per hour, Shortness of breath Additional Instructions: If you experience any of the following, contact your healthcare provider. Bleeding that soaks a pad every hour for 2 hours Unrelieved incision or abdominal pain Swelling, redness, discharge or bleeding from your incision or episiotomy site Your incision begins to separate Problems urinating (including inability to urinate or burning while urinating). Visual changes Severe headache Flu-like symptoms Pain or redness in one of both of your breasts Pain, warmth, tenderness or swelling in your legs, especially the calf area Frequent nausea and vomiting Symptoms of depression or anxiety If you experience any of the following, call 911 or go to the nearest Emergency Room. Chest pain Problems breathing Seizure activity Partial or complete paralysis of a body part, slurred speech, weakness or drooping of the face, or a sudden inability to walk or hold your balance Allergies/Adverse Reactions: Allergies No Known Allergies Allergy (Verified 06/04/18 15:43) Medications to take at Discharge Levothyroxine [Synthroid] 50 mcg PO DAILY 07/28/19 Methyldopa [Aldomet] 250 mg PO TID 07/28/19 Please Follow Up With: John Magallanes MD - [phone] When: Call to make an appointment with your doctor in 6 weeks. Primary Care Physician: Care Physician,No Primary [Primary Care Provider] - Test Results: Test results from this visit will be discussed in further detail at your follow-up appointment, if applicable.
[2019-07-28] MEDS: Ibuprofen 600 MG Tablet PO (21:22)
[2019-07-28 23:30] VITALS: BP 149/95; PULSE 85; RESP 18; TEMP 36.4
[2019-07-29 04:00] VITALS: BP 145/91; PULSE 99; RESP 16; TEMP 36.2
[2019-07-29] MEDS: Ibuprofen 600 MG Tablet PO ×2 (04:30→10:53)
[2019-07-29] MEDS: Levothyroxine 50 MCG Tablet PO (05:40)
[2019-07-29 07:49] VITALS: BP 137/93; PULSE 69; RESP 16; TEMP 36.1
[2019-07-29] MEDS: Acetaminophen 500 MG Tablet 1000 MG PO (08:08)
--- NOTE | 2019-07-29 08:25 | PCM.PN.OB ---
Subjective: Patient without complaints. Breast-feeding going well. Wants to go home later today if possible. - Physical Exam Vitals/I&O's: Vital Signs Temp Pulse Resp BP 97 F L 69 16 137/93 H 07/29/19 07:49 07/29/19 07:49 07/29/19 07:49 07/29/19 07:49 Oxygen Delivery Method Room Air Weight: 205 lb 0.478 oz Body Mass Index (BMI) 37.5 Intake and Output for Last 24 Hours 07/27/19 07/28/19 07/29/19 23:59 23:59 23:59 Intake Total 2500 / 2500 Output Total 1000 / 1000 500 / 500 Balance 1500 / 1500 -500 / -500 Comment: BPs mildly elevated as prior to delivery. Continue Aldomet TID at home. Laboratory Results 07/28/19 12:20: WBC 11.6 H, RBC 4.68, Hgb 13.2, Hct 39.5, MCV 84.4, MCH 28.2, MCHC 33.4, RDW Std Deviation 43.5, RDW Coeff of Bridger 14.3, Plt Count 217, MPV 9.7, Immature Gran % (Auto) 1.000 H, Neut % (Auto) 82.3 H, Lymph % (Auto) 10.6 L, [place] % (Auto) 5.5, Eos % (Auto) 0.3, Baso % (Auto) 0.3, Absolute Neuts (auto) 9.5 H, Absolute Lymphs (auto) 1.22, Nucleated RBC % 0 07/28/19 12:20: Blood Type A POSITIVE, Antibody Screen NEGATIVE Current Medications Acetaminophen (Tylenol) 1,000 mg PO Q8H PRN PRN PRN Reason: Pain Score 1-310 Last Admin: 07/29/19 08:08 Dose: 1,000 mg Documented by: Bisacodyl (Dulcolax) 10 mg RECTAL UD PRN PRN Reason: If no BM Dibucaine (Dibucaine) 1 applic TOPICAL TID PRN PRN; Protocol PRN Reason: Discomfort Hydrocortisone (Hytone) 1 applic TOPICAL TID PRN PRN; Protocol PRN Reason: Discomfort Ibuprofen (Motrin) 600 mg PO Q6H PRN PRN PRN Reason: Pain Score 1-3/10 Last Admin: 07/29/19 04:30 Dose: 600 mg Documented by: Levothyroxine Sodium (Synthroid) 50 mcg PO DAILY@0600 [facility] Last Admin: 07/29/19 05:40 Dose: 50 mcg Documented by: Methyldopa (Aldomet) 250 mg PO Q12 [facility] Last Admin: 07/28/19 21:23 Dose: 250 mg Documented by: Methylergonovine Maleate (Methergine) 0.2 mg IM X1 PRN PRN Reason: Excess bleeding/uterine atony Ondansetron HCl (Zofran) 4 mg IV Q4H PRN PRN PRN Reason: Nausea Oxycodone HCl (Oxyir) 5 - 10 mg PO Q4H PRN PRN PRN Reason: Pain Score 4-10/10 Senna/Docusate Sodium (Senokot-S, Elvira-Colace) 1 - 2 tablet PO DAILY PRN PRN PRN Reason: Constipation Simethicone (Mylicon) 80 mg PO PCHS PRN PRN Reason: Indigestion/Stomach pain Sodium Chloride () 5 - 15 ml IV UD PRN PRN Reason: SALINE FLUSH Zolpidem Tartrate (Ambien (Generic)) 5 mg PO QHS PRN PRN PRN Reason: Insomnia Medical Necessity - Tobacco Use Smoking Status: Never smoker Assessment/Plan Doing well day #1 status post . Will release to home with routine instructions. Continue Aldomet 250 mg 3 times daily at home for at least 2 weeks and then start to wean. Patient to monitor blood pressure daily at home and follow-up in the office in 2 weeks for an appointment.
[2019-07-29 14:00] VITALS: BP 129/80; RESP 16; TEMP 36.4
[2019-07-29 16:10] VITALS: BP 145/98; PULSE 63; RESP 16; TEMP 36.1
[2019-07-29 21:12] VITALS: BP 149/89; PULSE 64; RESP 18; TEMP 36.5; O2SAT 95
--- NOTE | 2019-07-29 21:14 | NURSING ---
Patient denies headache, blurred vision, or epigastric pain.
[2019-07-30 01:31] VITALS: BP 132/89; PULSE 67; RESP 16; TEMP 36.3; O2SAT 96
[2019-07-30] MEDS: Levothyroxine 50 MCG Tablet PO (06:16)
[2019-07-30 06:25] VITALS: BP 134/89; PULSE 69
[2019-07-30 08:05] VITALS: BP 145/87; PULSE 68; RESP 16; TEMP 36.6
[2019-07-30] MEDS: Ibuprofen 600 MG Tablet PO (09:18)
--- NOTE | 2019-07-30 12:02 | PCM.PN.OB ---
Subjective: Pain well controlled, tolerating diet, passing flatus, well; denies AMAYA, visual changes, epigastric pain or nausea Objective: AVSS Breasts filling, nipples atraumatic Fundus firm, midline, u/1, lochia scant Perineal repair well approximated, no edema, erythema or drainage noted - Physical Exam Vitals/I&O's: Vital Signs Temp Pulse Resp BP Pulse Ox 97.8 F 68 16 145/87 H 96 07/30/19 08:05 07/30/19 08:05 07/30/19 08:05 07/30/19 08:05 07/30/19 01:31 Oxygen Delivery Method Room Air Weight: 205 lb 0.478 oz Body Mass Index (BMI) 37.5 Intake and Output for Last 24 Hours 07/28/19 07/29/19 07/30/19 23:59 23:59 23:59 Intake Total 2500 / 2500 Output Total 1000 / 1000 500 / 500 Balance 1500 / 1500 -500 / -500 General: Alert, Oriented x3, Cooperative, No apparent distress HEENT: PERRLA, EOMI Oral: Moist Mucosa Neck: Supple Lungs: Clear to auscultation, Normal air movement Cardiovascular: Regular rate, Regular Rhythm Abdomen: Bowel Sounds Present, Soft, Non Tender, Non-Distended, Passing Flatus Extremities: No edema, Capillary Refill Less than 3 Seconds, No Calf Tenderness Skin: No rashes Musculoskeletal: No Tenderness to Palpation of Joints or Extremities Neurological: Cranial nerves II-XII grossly intact, Deep Tendon Reflexes 2+/4 and Symmetrical Psych/Mental Status: Normal Affect, Appropriate, Alert and oriented to time, place, person, mood and affect Current Medications Acetaminophen (Tylenol) 1,000 mg PO Q8H PRN PRN PRN Reason: Pain Score 1-3/10 Last Admin: 07/29/19 08:08 Dose: 1,000 mg Documented by: Bisacodyl (Dulcolax) 10 mg RECTAL UD PRN PRN Reason: If no BM Dibucaine (Dibucaine) 1 applic TOPICAL TID PRN PRN; Protocol PRN Reason: Discomfort Hydrocortisone (Hytone) 1 applic TOPICAL TID PRN PRN; Protocol PRN Reason: Discomfort Ibuprofen (Motrin) 600 mg PO Q6H PRN PRN PRN Reason: Pain Score 1-3/10 Last Admin: 07/30/19 09:18 Dose: 600 mg Documented by: Levothyroxine Sodium (Synthroid) 50 mcg PO DAILY@0600 [facility] Last Admin: 07/30/19 06:16 Dose: 50 mcg Documented by: Methyldopa (Aldomet) 250 mg PO TID [facility] Last Admin: 07/30/19 06:21 Dose: 250 mg Documented by: Methylergonovine Maleate (Methergine) 0.2 mg IM X1 PRN PRN Reason: Excess bleeding/uterine atony Senna/Docusate Sodium (Senokot-S, Elvira-Colace) 1 - 2 tablet PO DAILY PRN PRN PRN Reason: Constipation Simethicone (Mylicon) 80 mg PO PCHS PRN PRN Reason: Indigestion/Stomach pain Zolpidem Tartrate (Ambien (Generic)) 5 mg PO QHS PRN PRN PRN Reason: Insomnia Medical Necessity - Tobacco Use Smoking Status: Never smoker Assessment/Plan Assessment: 33yo G3 now P3002 delivered at 39w6d 2nd ; PP Day #2, normal involution, normal PP course Elevated blood pressures, asymptomatic DC home today; Continue Aldomet 250 mg 3 times daily at home for at least 2 weeks and then start to wean. Patient to monitor blood pressure daily at home and follow-up in the office in 2 weeks
== END 2019-07-30 11:00 | disposition home or self-care (01) | DRG 807 ==
LOC: WPOUT 11:50 → WP 12:00
PROVIDERS: Admitting Provider Obstetrics & Gynecology; Referring Provider Obstetrics & Gynecology; Visit Provider Obstetrics & Gynecology
DX: O34.219 Maternal care for unspecified type scar from previous cesarean delivery (principal); O76 Abnormality in fetal heart rate and rhythm complicating labor and delivery; O70.0 First degree perineal laceration during delivery; E03.9 Hypothyroidism, unspecified; O99.284 Endocrine, nutritional and metabolic diseases complicating childbirth; O13.4 Gestational [pregnancy-induced] hypertension without significant proteinuria, complicating childbirth; Z3A.39 39 weeks gestation of pregnancy; Z37.0 Single live birth
CPT/HCPCS: 59025; 59050; 85025; 86850; 86900; 86901; 99218; J7030; J7120; G0378

== ENCOUNTER → 2021-02-06 | Outpatient (CLI) | payer SELFPAY ==
--- NOTE | 2021-02-07 10:15 | CER_PTH ---
PATIENT: GLORY PETTY LOC: [facility] U#:[id number] AGE/SX: 35/F ROOM: RE02/06/[address]: Dr. John Magallanes MD : 1985 BED: DIS: 02/06/2021 SPEC #: [id number] RECD: 02/07/21 11:59 STATUS: PETRA BRINDA #: [id number] DANIAL: 02/07/21 10:[address]: John Magallanes DEPT: SURGICAL PATHOLOGY RECD BY: Lulú Davis ENTERED: 02/07/21 14:14 SP TYPE: CERV OTHR DR: No Primary Care Phys Tissues: Uterine cervix, NOS Procedures: Surgery Specimen Level IV HEADER OPERATION: Polypectomy PRE-OP DIAGNOSIS: Cervical polyp TISSUE SUBMITTED: Cervical polyp MICROSCOPIC DIAGNOSIS Cervical polyp, polypectomy: Fragments of inflamed benign endocervical polyp with acute and chronic inflammation and squamous metaplasia. SJ:jessie 02/08/2021 MICROSCOPIC DESCRIPTION Slides are reviewed. GROSS DESCRIPTION Received in fixative is one container labeled with the patient's name and designated cervical polyp. The specimen consists of a piece of pink, congested polyp measuring 1.5 x 1 x 0.3 cm. Also present in the container are multiple fragments of hemorrhagic soft tissue that in aggregate measure 1.5 x 0.2 x 0.1 cm. The specimen is totally submitted in one cassette. / SJ:jessie 02/07/21 TC:5 CPT: 99257
[2021-02-09 14:27] LABS: HPV Reflexed? NOT INDICATED
[2021-02-11 07:07] LABS: Chlamydia By Nucleic Acid AMP Negative (Negative)
[2021-02-11 07:55] LABS: Gonococcus By Nucleic Acid AMP Negative (Negative)
== END | disposition home or self-care (01) ==
LOC: LABSPEC 02-07 09:37
PROVIDERS: Visit Provider Obstetrics & Gynecology
DX: Z32.01 Encounter for pregnancy test, result positive (principal); Z12.4 Encounter for screening for malignant neoplasm of cervix; Z11.3 Encounter for screening for infections with a predominantly sexual mode of transmission; N84.1 Polyp of cervix uteri
CPT/HCPCS: 87491; 87591; 88175; 88305; G0145

== ENCOUNTER → 2021-04-16 16:48 | Outpatient (CLI) | payer OTHER, SELFPAY ==
[2021-04-16 18:05] LABS: T4 Free Direct 0.82 ng/dL (0.76-1.46); Thyroid Stim Hormone (TSH) 5.58 uIU/mL (0.358-3.74)
== END ==
PROVIDERS: Visit Provider Obstetrics & Gynecology
DX: Z34.82 Encounter for supervision of other normal pregnancy, second trimester (principal); E03.9 Hypothyroidism, unspecified
CPT/HCPCS: 36415; 84439; 84443; 84481

== ENCOUNTER → 2021-07-31 | Outpatient (CLI) | payer OTHER, SELFPAY | END | disposition home or self-care (01) | PROVIDERS: Visit Provider Obstetrics & Gynecology | DX: Z36.85 Encounter for antenatal screening for Streptococcus B (principal) | CPT/HCPCS: 87081 ==

== ENCOUNTER 2021-08-22 18:40 | Inpatient (IN) | payer SELFPAY ==
[2021-08-22] VITALS (36 sets, daily range): BP systolic 127–175; BP diastolic 73–99; PULSE 70–95; RESP 16; TEMP 36.4–36.6; O2SAT 97–100; BMI 32.3
[2021-08-22] MEDS: Lactated Ringers 1,000 ML 50 ML IV (18:50)
[2021-08-22 19:12] LABS: Absolute Neutrophil Count 13.8 X10^3/uL (2.0-7.7); Basophil# 0.07 X10^3/uL; Basophil% 0.4 % (0-1); Eosinophil# 0.04 X10^3/uL; Eosinophils% 0.2 % (0-5); Hematocrit 39.6 % (37-47); Hemoglobin 13.8 g/dL (12.0-15.0); Lymphocyte % 10.6 % (19-41); Mean Corp Hgb Conc 34.8 g/dL (32-36); Mean Corpuscular Hgb 29.6 pg (27.0-32.0); Mean Platelet Vol. 9.7 fl (6.2-12.0); Monocyte# 1.01 X10^3/uL; Monocyte% 5.9 % (0-10); NRBC Flagged by Analyzer 0 % (0-5); Neutrophil # 13.79 X10^3/uL (2.7-7.7); Neutrophil % 81.3 % (47-70); Platelet Count 270 K/mm3 (150-450); RBC Distribution Width CV 13.7 % (11.6-14.6); RBC Distribution Width SD 42.1 fl (35.1-43.9); Red Blood Count 4.66 M/mm3 (4.2-5.4)
[2021-08-22] MEDS: Oxytocin 30 units/NS 500 ml 30 UNITS/500 ML IV.SOLN 334 UNITS IV (19:17)
--- NOTE | 2021-08-22 19:26 | EX.PCM.OBRPT ---
Assessment & Plan (1) Vaginal delivery following previous section, delivered: (2) Precipitous delivery: Vaginal Delivery Operative Information Pre-Operative Diagnosis: IAL Post-Operative Diagnosis: same Surgery / Procedure Performed: Spontaneous Vaginal Delivery Type of Anesthesia: None Special Medications: none Estimated Blood Loss: 100 Fluids Replaced: crystalloid Findings Description of Procedure: Patient began pushing and delivered the head in the [RITCHIE] presentation. The head was delivered atraumatically . The anterior and posterior shoulders delivered without complication followed by the rest of the and the was placed on the maternal abdomen. Delayed cord clamping was employed for approximately 60 seconds. Cord was clamped and cut and gentle traction was applied to the cord and the placenta delivered spontaneously immediately following it was noted to be intact with three-vessel cord. The perineum and vagina were inspected and [noted to have no laceration]. EBL was [100 cc]. Patient and tolerated delivery well. Presentation: RITCHIE Amniotic Membrane Rupture Type: Spontaneous Amniotic Fluid Description: Clear Placental Delivery Description: Spontaneous Placenta Disposition: [facility] Cord Vessel Description: 3 Vessels Cord Entanglement: None Infant A Gender: Male Delayed Cord Clamping: Yes Post Vaginal Delivery Medications Given After Delivery: IV Pitocin Episiotomy Description: None Laceration: None Complication Complications: None Procedures Urinary/Genital [id number]: [id number] Vaginal Delivery Only
--- NOTE | 2021-08-22 19:55 | HP.PCM_ITS ---
History and Physical Date of Admission: 08/22/21 OG ANTEPARTUM RECORD - HISTORY AND PHYSICAL (08/22/2021) Name: GLORY LAUGHLIN History of this : This is a 35 year old [id number] presents at 40 wks + 0 days gestation in active labor. OB Physician: John Magallanes MD 's Physician: Dr Nacho Aguayo ...................................................................... : 1985 Age: 35 Address: [address] [place] [address] Phone: (h) [phone] ([phone] Insurance Carrier: Emergency Contact: KRYSTA AGUDELO ALVAREZ LAUGHLIN [phone] ...................................................................... Final OWEN: 08/22/21 By Ultrasound: 11 weeks 6 days PARITY: (G-Total Pregnancies P-Fullterm,Premature,Induced AB,Spont AB, Ectopics, Multiple,Living) OWEN CONFIRMATION: By LMP: 11/16/20 By First Ultrasound Exam: 07/28/19 Final OWEN: 08/22/21 OB PROBLEM LIST: Please check about genetic tests. 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 13 --Panorama results this baby negative ALLERGIES: No Known Allergies MEDICATIONS: Pendroy 3-6-9 1,200 mg capsule One pill by mouth once a day 28 mg iron-800 mcg tablet One pill by mouth once a day Supplement (s) [No Strength] EcoThyro 125 one po daily Supplement (s) [No Strength] Enyzme po bid with meal Supplement (s) [No Strength] Liquid Herbal Calcium bid Supplement (s) [No Strength] Nu Adapt one po daily Synthroid 100 mcg tablet One pill by mouth once a day Vitamin D3 125 mcg (5,000 unit) tablet One pill by mouth once a day SOCIAL HISTORY: Smoking - Never Alcohol Use - None Diet - balanced Diet, Occ tea and Water intake- 2L daily Lifestyle - moderate stress lifestyle and Exercise - Busy w home garden, kids. Employer - [employer] Job Description - Illicit Drug Use - None Sexual Activity - Residence - Lives w and sons ages 4 and 1 1/2y. Spouse-Sig Other Name - Datnaeem Laughlin Spouse-Sig Other Occupation - [employer] Spouse-Sig Other Phone No - same as hers. Children Name(s) - Zainab(16) Cosme Del Toro 18), Nick(19) PRIOR DELIVERY HISTORY ____ DEL DATE GEST LAB WT LB WT OZ TYPE ANES LABOR TX Sep 13 39 18 7 6 C-Sec Epidural No Jun 16 38 21 6 9 Epidural No Jul 17 39 18 7 1 Vag Epidural No ANTEPARTUM FLOW CHART VISIT GE RTC FU F F KS U U DATE WK MD WKS HT PN HR M SS BP ED WT KS GL D EF ST __ ____ ___ __ __ ___ __ __ __ ___ __ __ __ ___ __ 23 Jul JMW 1 38 V + + 136/84 0 186 - - 3 50 -2 Jul JM 1 38 V + + 136/82 sl 195 tr - 2 Jul JM 1 37 V + + 134/94 0 192 13 94 2 02 Jul JMW 1 36 V + + 124/78 0 185 tr - 2 50 -2 Jun JMW 1 35 V + + 132/84 sl 188 - - Jun JM 2 33 V on + 138/88 sl 185 - - Jun 26 JMW 3 29 + + 144/83 sl 184 tr - May 23 JM 3 25 - + + 138/88 0 180 - - Apr 18 SHM 4 22 V + + 144/84 0 175 tr - Mar 13 JMW 4 15 + + 110/72 0 168 - - ANTEPARTUM NOTE(S): Aug 21 2021: Ctxs-occas, Low Pressure,Good FM Aug 14 2021: occ cramping, low backache Aug 06 2021: occasional back pain and pelvic pressure Jul 31 2021: doing well, LARC and GBS today Jul 24 2021: Good FM,Feeling Well Jul 09 2021: Good FM.Just seen MFM today Jun 05 2021: Doing Well, considering [id number]; refer MFM May 15 2021: doing well, labs today Apr 16 2021: comp u/s today Mar 06 2021: Declines AFP,CF, FM Noted COMPREHENSIVE ANTEPARTUM NOTE(S): Aug 14 2021: 38wk, MFM last u/s with persistent bilateral renal pelviectasis. Please refer to MFM last note, baby needs Abx and urology follow up. . JM Aug 07 2021: H taken to OB. tkg Aug 06 2021: Glory is here for a PNV at 37/5. Good FM. No edema present. Denies concerns. Occasional back pain and pelvic pressure, no ctx's. Desires cervix check today, 2 cm at last appt. BP recheck after 15 min's on L side, 124/78. MK Aug 06 2021: 37 weeks, GBS negative. initial blood pressure elevated, repeat within normal limits. Patient asymptomatic. [facility] repeat ultrasound today, records pending. Per patient within normal limits no changes. For . OLAMIDE Jul 09 2021: Glory presents here today for PNV reporting that yesterday was the end of her 14 day quarantine from positive Covid. Continues with periodic congestion and slight cough in the morning. Denies other concerns at this time. Good FM. Came from [facility] [place] [facility] prior to this appt. LYLE Jul 09 2021: 33wk, [facility] u/s today with Right kidney 1.2cm Left kidney 1.1cm mild renal pelviectasis, Right lateral ventriculomegaly 10.2mm. [facility] recommendation for every 4 week growth ultrasounds. Okay to deliver here. Baby for antibiotics after delivery per [facility]. For pediatric urology evaluation 1 week . 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 Previous u/s with ventriculomegaly and renal pelviectasis. Pt previous declines genetic screening, rediscussed genetic screening r/b/a including cost of NIPT and Amniocentesis. Pt considering, will call if she desires needs to talk to . Repeat u/s ordered for 28wks. Increased synthroid dose las May 15 2021: Labs (CBC, 1hr GCT, TSH,FreeT4) drawn x 1 attempt from Rt ac with 23g butterfly. Patient tolerated well site without compromise. jlb Apr 16 2021: Anatomy scan today, EFW >90th%, MALE, b/l renal pyelectasis, borderline u/l ventriculomegaly and prominent cisterna magna. Discussed soft markers concerning for aneuploidy. Discussed cfDNA for aneuploidy screening, pt with 2 first degree relatives having trisomies including her brother and late son. She will consider this, but declines at this time. Plan repeat US at 28wga. 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 Her Dat is a ortiz. They have sons ages 4 and 18 mo. They had one baby w Trisomy 13 who at 6 days. The family is happy about the pg. Glory has NKAD or latex. She is a lifetime non smoker, non drinke Feb 12 2021: TELEHEALTH NOB- Initially Glory did not answer. MLOM. Upon returning call is too busy (planting her patch) so will reschedule. LALIT. Feb 06 2021: Glory presents here today for Missed Menses appointment. 35 y.o. G 4 P 2 non-smoker with regular menses and LMP of 11-16-20 lasting her average of 5-6 days. UPT is positive today in our Office. Presents at 11 weeks 6 days with an approximate OWEN of 08/27/21. Plans at [facility] if possible with last in 2018. Admits she had a small amount of brown discharge for several days in November and nothing sin Feb 06 2021: ok Feb 06 2021: labs drawn from Rt ac with 23g butterfly x 1 attempt patient tolerated well site without compromise. jlb REVIEW OF SYSTEMS: GENERAL - Denies fever, or chills SKIN - Denies rash, new skin lesions, or change in moles EYES - Denies blurred vision, or change in visual acuity EARS - Denies ear pain, or difficulty hearing NOSE - Denies nasal congestion, discharge, or bleeding MOUTH - Denies sore throat, or difficulty swallowing NECK - Denies pain or swelling RESPIRATORY - Denies shortness of breath, cough, wheezing CARDIOVASCULAR - Denies palpitations, chest pain, orthopnea, PND, peripheral edema, syncope or claudication GASTROINTESTINAL - Denies nausea, vomiting, diarrhea, constipation, Denies abdominal pain, melena and or bright red blood GENITOURINARY - Denies dysuria, frequency of urination, urgency, or hesitancy MUSCULOSKELETAL - Denies joint or muscle pain, or back pain NEUROLOGICAL - Denies localized numbness, weakness, or tingling PSYCHIATRIC - Denies depression, anxiety, substance abuse or suicide attempts ENDOCRINE - Denies heat or cold intolerance, weight loss or gain, increasing thirst HEMATO-IMMUNOLOGIC - Denies easy bruising, bleeding, oral ulcerations or recurrent infections GENETICS SCREENING: Age 35+ years: No Thalassemia: No Neural Tube Defect: No Down Syndrome: Yes HARI-SACHS: No Sickle Cell Disease: No Hemophilia: No Musc. Dystrophy: No Cystic Fibrosis: No-declines screening Sam Chorea: No Mental Retardation: No Fragile X: No Other genetic: No Other defects: No SABs/still births: No Drugs since LMP: Yes Comments: Trisomy 13 son. at 6 days. INFECTION HISTORY: High risk AIDS: No High risk Hepatitis: No Exposed to TB: No Exposed to Herpes: No Rash/viral illness since LMP: No History of STD: No MENSTRUAL HISTORY: *Menses Amount/Duration: normal amountMenses Regularity: RegularFrequency: monthlyMenarche (Age Onset): 13* PAST SUMMARY: PARITY: 1. Total Pregnancies............ 4 2. Full Term Pregnancies........ 3 3. Premature.................... 0 4. Abortions - Induced.......... 0 5. Abortions - Spontaneous...... 0 6. Ectopics..................... 0 7. Multiple Births.............. 0 8. Living Children.............. 2 PAST #1: Date of :.................. 09/03/16 Gestation Weeks:................ 39 Length of labor(hours):......... 18 Sex:............................ M Weight-lbs:............... 7 Weight-oz:................ 6 Type of Delivery:............... C-Sect Type of Anesthesia:............. Epidural Place of Delivery:.............. [facility] Treatment of Labor?:.... No Comment: PIH/ DISTRESS PAST #2: Date of :.................. 06/04/18 Gestation Weeks:................ 38 Length of labor(hours):......... 21 Sex:............................ M Weight-lbs:............... 6 Weight-oz:................ 9 Type of Delivery:............... Type of Anesthesia:............. Epidural Place of Delivery:.............. [place] Treatment of Labor?:.... No Comment: PASSED AFTER 6 DAYS PAST #3: Date of :.................. 07/28/19 Gestation Weeks:................ 39 Length of labor(hours):......... 18 Sex:............................ M Weight-lbs:............... 7 Weight-oz:................ 1 Type of Delivery:............... Vag Type of Anesthesia:............. Epidural Place of Delivery:.............. [place] Treatment of Labor?:.... No Comment: PIH,PPD PHYSICAL EXAMINATION General Appearence: 35 yo female in no acute distress Vital Signs: AF, VSS Heart: RRR without rubs or gallops Lungs: CTA x 2 Breasts: deferred Abdomen: gravid Pelvis: Cervix: Presentation: cephalic Station: Fetus: Size: AGA Movement: present Heart: present LAB TEST(S) ORDERED SINCE:11/25/20 08/22/2021 CBC W/DIFF, AUTOMATED 08/04/2021 RULE OUT BETA STREP (GRP. B) 06/08/2021 POMERENE 3 [CCL] 06/08/2021 HEPATITIS C AB IA W/CONFIRM [CCL] 06/05/2021 URINALYSIS 06/05/2021 TSH 06/05/2021 CBC + DIFF 06/05/2021 BB TYPE 05/16/2021 24-35 Week Labs 04/16/2021 THYROID STIM HORMONE (TSH) 04/16/2021 T4 FREE DIRECT 04/16/2021 FREE T3 02/11/2021 CHLAMYDIA/GC LANETTE APTIMA 02/10/2021 HIV 1/2 COMBO (AG/AB) [CCL] 02/09/2021 PAP IG W/REFLEX HR HPV APTIMA 02/07/2021 URINALYSIS 02/07/2021 T3, FREE [CCL] 02/07/2021 POMERENE 3 [CCL] 02/07/2021 HEPATITIS C AB IA W/CONFIRM [CCL] 02/06/2021 TSH 02/06/2021 T4-FREE (FREE THYROXINE) 02/06/2021 CBC + DIFF 02/06/2021 BB TYPE == ==== Order Observation Description Value Ref_Range A * Site == ==== CBC W/DIFF, AUT NOTE TIPTON CBC W/DIFF, AUT WBC 17.0 K/mm3 4.4-11.0 H ML CBC W/DIFF, AUT RBC 4.66 M/mm3 4.2-5.4 ML CBC W/DIFF, AUT HGB 13.8 g/dL 12.0-15.0 ML CBC W/DIFF, AUT HCT 39.6 37-47 ML CBC W/DIFF, AUT MCV 85.0 fL 81-99 ML CBC W/DIFF, AUT MCH 29.6 pg 27.0-32.0 ML CBC W/DIFF, AUT MCHC 34.8 g/dL 32-36 ML CBC W/DIFF, AUT RDW CV 13.7 11.6-14.6 ML CBC W/DIFF, AUT RDW SD 42.1 fl 35.1-43.9 ML CBC W/DIFF, AUT PLT 270 K/mm3 150-450 ML CBC W/DIFF, AUT MPV 9.7 fl 6.2-12.0 ML CBC W/DIFF, AUT NEUT% 81.3 47-70 H ML CBC W/DIFF, AUT LY% 10.6 19-41 L ML CBC W/DIFF, AUT MONO% 5.9 0-10 ML CBC W/DIFF, AUT EO% 0.2 0-5 ML CBC W/DIFF, AUT BASO% 0.4 0-1 ML CBC W/DIFF, AUT IG% 1.600 0.0-0.9 H ML IG% - Immature Granulocytes (promyelocytes, myelocytes and metamyelocytes) > 1% indicates that a LEFT SHIFT is Present. CBC W/DIFF, AUT ABSOLUTE NEUT 13.8 X10 3/uL 2.0-7.7 H ML CBC W/DIFF, AUT ABSOLUTE LYMPH 1.80 X10 3/uL 0.83-4.51 ML CBC W/DIFF, AUT NUCLEATED RBC 0 0-5 ML RULE OUT BETA S NOTE TIPTON HEPATITIS C AB NOTE [facility] HEPATITIS C AB HEPATITIS C AB IA Negative NEGAT [place] [id number] Antwan Crowley III, M.D. [id number] POMFORM[facility]LY [facility] 3 [CCL NOTE [facility] [[facility] RPR Non Reactive NR [facility] [CCL HEPATITIS B SURF. AG Negative NEGAT [facility] 3 [CCL RUBELLA IGG AB, QUAL Positive NEGAT A [facility] Sample is considered positive for IgG antibodies to rubella virus. A positive result indicates previous exposure to Rubella virus or vaccination. [facility] [[facility]L RUBELLA IGG AB 15.20 Indexlue [facility] Index values are interpreted as follows: Negative specimens <0.90 Equivocol specimens 0.90 to 0.99 Positive specimens >0.99 The magnitude of the measured result is not indicative of the amount of antibody present. [facility] [address] [place] [address] Antwan Crowley III, M.D. [id number] BB TYPE NOTE [facility] BB TYPE BB TYPE [facility] TYPE, Rh, AND SCREEN BB TYPE ABO A [facility] BB TYPE RH POS [facility] BB TYPE ANTIBODY SCR negative [facility] CBC + DIFF NOTE [facility] CBC + DIFF CBC + DIFF [facility] CBC-COMPLETE BLOOD COUNT CBC + DIFF WBC 9.9 x 10EE3/UL 4.5 - 10.8 [facility] CBC + DIFF RBC 3.93 x 10EE6/UL 4.10 - 5.30 L [facility] CBC + DIFF HEMOGLOBIN 11.4 g/dl 12.0 - 16.0 L [facility] CBC + DIFF HEMATOCRIT 33.7 % 34.0 - 46.0 L [facility] CBC + DIFF MCV 86 fl 80 - 99 [facility] CBC + DIFF MCH 29 pg 27 - 33 [facility] CBC + DIFF MCHC 34 X10 3 32 - 36 [facility] CBC + DIFF RDW/CV 13.8 % 12.0 - 15.6 [facility] CBC + DIFF PLATELET 300 x10EE3/UL 150 - 450 [facility] CBC + DIFF MPV 7.5 fl 6.6 - 10.5 [facility] AUTOMATED DIFFERENTIAL CBC + DIFF NEUT % 63.3 % 46.0 - 76.0 [facility] CBC + DIFF LYMPH % 18.0 % 20.0 - 45.0 L [facility] CBC + DIFF MONOS % 15.5 % 0.0 - 10.0 H [facility] CBC + DIFF EO % 1.9 % 0.0 - 7.0 [facility] CBC + DIFF BASO % 1.3 % 0.0 - 2.0 [facility] CBC + DIFF LYMPH # 1.80 x10EE3/UL 0.80 - 2.80 [facility] CBC + DIFF NEUT # 6.30 x10EE3/UL 1.50 - 7.10 [facility] CBC + DIFF MONO # 1.50 x10EE3/UL 0.20 - 1.00 H [facility] CBC + DIFF EO # 0.20 x10EE3/UL 0.00 - 0.50 [facility] CBC + DIFF BASO # 0.10 x10EE3/UL 0.00 - 0.10 [facility] CBC + DIFF MANUAL DIFF N/A [facility] CBC + DIFF MORPHOLOGY N/A [facility] {CD] TSH NOTE [facility] TSH TSH 3.10 uIU/ml 0.35 - 3.74 [facility] URINALYSIS NOTE [facility] URINALYSIS URINALYSIS [facility]YSIS URINALYSIS SPECIMEN TYPE Clean catch [facility] URINALYSIS COLOR p.yel NORMAL: YELLOW [facility] URINALYSIS CLARITY clear NORMAL: CLEAR [facility] URINALYSIS PH 7 NORMAL: 5.0-8.0 [facility] URINALYSIS PROTEIN NEG NORMAL: NEGATIV [facility] UR[facility] GLUCOSE NORM NORMAL: NORMAL [facility] URINALYSIS KETONE NEG NORMAL: NEGATIV [facility] URINALYSIS BILIRUBIN NEG NORMAL: NEGATIV [facility] URINALYSIS BLOOD NEG NORMAL: NEGATIV [facility] UR[facility]IS UROBILINOG NORM NORMAL: NORMAL [facility] URINALYSIS SP GRAVITY 1.010 NORMAL: 1.010-1 [facility] URINALYSIS NITRITE NEG NORMAL: NEGATIV [facility] URINALYSIS LEUKOCYTES NEG NORMAL: NEGATIV [facility] URINALYSIS MICROSCOPIC NOT INDICATED [facility] 24-35 Week Labs HCT/HGB scanned TIPTON T4 FREE DIRECT NOTE TIPTON T4 FREE DIRECT T4 FREE DIRECT 0.82 ng/dL 0.76-1.46 ML THYROID STIM HO NOTE TIPTON THYROID STIM HO TSH 5.58 uIU/mL 0.358-3.74 H ML FREE T3 NOTE TIPTON FREE T3 FREE T3 2.0 pg/mL 2.18-3.98 L ML CHLAMYDIA/GC NA NOTE TIPTON CHLAMYDIA/GC NA CHLAMY,NUC ACID Negative Negative [facility] CHLAMYDIA/GC NA GC BY NUC ACID Negative Negative [facility] Performed at: =[facility] [id number] Machine Fixer: Jinny Quesada MD, Phone: [phone] PAP IG W/REFLEX NOTE TIPTON PAP IG W/REFLEX DIAG Comment . [facility] NEGATIVE FOR INTRAEPITHELIAL LESION OR MALIGNANCY. PAP IG W/REFLEX ADEQ Comment . LCI Satisfactory for evaluation. Endocervical and/or squamous metaplastic cells (endocervical component) are present. PAP IG W/REFLEX PERFORM Comment . [facility] Malia Yadav, Repair Miller (ASCP) This liquid based ThinPrep(R) pap test was screened with the use of an image guided system. PAP IG W/REFLEX COMM . . [facility] PAP IG W/REFLEX PAPSMR Comment . LCI The Pap smear is a screening test designed to aid in the detection of premalignant and malignant conditions of the uterine cervix. It is not a diagnostic procedure and should not be used as the sole means of detecting cervical cancer. Both false-positive and false-negative reports do occur. PAP IG W/REFLEX HPV RFLX Comment . [facility] The HPV DNA reflex criteria were not met with this specimen result therefore, no HPV testing was performed. Performed at: - Lab97 [address] [place] [id number] Machine Fixer: Jinny uQesada MD, Phone: [phone] [facility]~[address] [place], [address]~ URINALYSIS NOTE [facility] URINALYSIS URINALYSIS [facility] URINALYSIS URINALYSIS SPECIMEN TYPE Clean catch [facility] URINALYSIS COLOR p.yel NORMAL: YELLOW [facility] URINALYSIS CLARITY clear NORMAL: CLEAR [facility] URINALYSIS PH 7 NORMAL: 5.0-8.0 [facility] URINALYSIS PROTEIN NEG NORMAL: NEGATIV [facility] URINALYSIS GLUCOSE NORM NORMAL: NORMAL [facility] URINALYSIS KETONE NEG NORMAL: NEGATIV [facility] URINALYSIS BILIRUBIN NEG NORMAL: NEGATIV [facility] URINALYSIS BLOOD NEG NORMAL: NEGATIV [facility] URINALYSIS UROBILINOG NORM NORMAL: NORMAL [facility] URINALYSIS SP GRAVITY 1.005 NORMAL: 1.010-1 L [facility] URINALYSIS NITRITE NEG NORMAL: NEGATIV [facility] URINALYSIS LEUKOCYTES NEG NORMAL: NEGATIV [facility] URINALYSIS MICROSCOPIC NOT INDICATED [facility] HIV 1/2 COMBO ( NOTE [facility] HIV 1/2 COMBO ( HIV 1/2 COMBO (AG/AB) [C [facility] _HIV 12 COMBO (AG/AB) [CCL]_ SEE SEPARATE REPORT T3, FREE [CCL] NOTE [facility] T3, FREE [CCL] FREE T3 3.9 pg/mL 2.3-4.1 [place] [email or web address] [address] Antwan Crowley III, M.D. [id number] HEPATITIS C AB NOTE [facility] HEPATITIS C AB HEPATITIS C AB IA Negative NEGAT [place] [id number] [place] [address] Antwan Crowley III, M.D. [id number] [facility] 3 [CCL NOTE [facility] 3 [CCL RPR Non Reactive NR [facility] [place] 3 [CCL HEPATITIS B SURF. AG Negative NEGAT [facility] [CCL RUBELLA IGG AB, QUAL Positive NEGAT A [facility] Sample is considered positive for IgG antibodies to rubella virus. A positive result indicates previous exposure to Rubella virus or vaccination. [facility] [CCL RUBELLA IGG AB 19.50 Indexlue [facility] Index values are interpreted as follows: Negative specimens <0.90 Equivocol specimens 0.90 to 0.99 Positive specimens >0.99 The magnitude of the measured result is not indicative of the amount of antibody present. [facility] [address] [place] [address] Antwan Crowley III, M.D. [id number] BB TYPE NOTE [facility] BB TYPE BB TYPE [facility] TYPE, Rh, AND SCREEN BB TYPE ABO A [facility] BB TYPE RH POS [facility] BB TYPE ANTIBODY SCR negative [facility] T4-FREE (FREE T NOTE [facility] T4-FREE (FREE T T4 FREE 0.74 ng/dl 0.76 - 1.46 L [facility] Potential of falsely elevated results when biotin concentrations are > 10 ng/mL. TSH NOTE [facility] TSH TSH 4.69 uIU/ml 0.35 - 3.74 H [facility] CBC + DIFF NOTE [facility] CBC + DIFF CBC + DIFF [facility] CBC-COMPLETE BLOOD COUNT CBC + DIFF WBC 6.8 x 10EE3/UL 4.5 - 10.8 [facility] CBC + DIFF RBC 4.34 x 10EE6/UL 4.10 - 5.30 [facility] CBC + DIFF HEMOGLOBIN 12.3 g/dl 12.0 - 16.0 [facility] CBC + DIFF HEMATOCRIT 35.5 % 34.0 - 46.0 [facility] CBC + DIFF MCV 82 fl 80 - 99 [facility] CBC + DIFF MCH 28 pg 27 - 33 [facility] CBC + DIFF MCHC 35 X10 3 32 - 36 [facility] CBC + DIFF RDW/CV 13.9 % 12.0 - 15.6 [facility] CBC + DIFF PLATELET 289 x10EE3/UL 150 - 450 [facility] CBC + DIFF MPV 7.6 fl 6.6 - 10.5 [facility] AUTOMATED DIFFERENTIAL CBC + DIFF NEUT % 71.8 % 46.0 - 76.0 [facility] CBC + DIFF LYMPH % 19.6 % 20.0 - 45.0 L [facility] CBC + DIFF MONOS % 5.7 % 0.0 - 10.0 [facility] CBC + DIFF EO % 2.1 % 0.0 - 7.0 [facility] CBC + DIFF BASO % 0.8 % 0.0 - 2.0 [facility] CBC + DIFF LYMPH # 1.30 x10EE3/UL 0.80 - 2.80 [facility] CBC + DIFF NEUT # 4.90 x10EE3/UL 1.50 - 7.10 [facility] CBC + DIFF MONO # 0.40 x10EE3/UL 0.20 - 1.00 [facility] CBC + DIFF EO # 0.10 x10EE3/UL 0.00 - 0.50 [facility] CBC + DIFF BASO # 0.10 x10EE3/UL 0.00 - 0.10 [facility] CBC + DIFF MANUAL DIFF N/A [facility] CBC + DIFF MORPHOLOGY N/A [facility] {CD] Group B Beta Streptococcus is not isolated. OPERATION: Polypectomy PRE-OP DIAGNOSIS: Cervical polyp TISSUE SUBMITTED: Cervical polyp Cervical polyp, polypectomy: Fragments of inflamed benign endocervical polyp with acute and chronic inflammation and squamous metaplasia. BRYANT:jessie 02/08/2021 Slides are reviewed. Received in fixative is one container labeled with the patient's name and designated cervical polyp. The specimen consists of a piece of pink, congested polyp measuring 1.5 x 1 x 0.3 cm. Also present in the container are multiple fragments of hemorrhagic soft tissue that in aggregate measure 1.5 x 0.2 x 0.1 cm. The specimen is totally submitted in one cassette. / SJ:jessie 02/07/21 TC:5 [facility]: [id number] Signed (signature on file) Dr. Magdi Mcgarry MD 02/08/21 1107 == ==== Impression /Plan: 40 wks + 0 days intrauterine in advanced labor at 9 cm dilation. For . Preparations in progress for delivery.
--- NOTE | 2021-08-22 21:30 | NURSING ---
Report given to Sarahi YAÑEZ, taking over pt care at this time.
[2021-08-22] MEDS: NIFEdipine 30 MG Tablet PO (22:04)
[2021-08-23 03:59] VITALS: BP 129/81; PULSE 74; RESP 16; TEMP 36.6
[2021-08-23] MEDS: Levothyroxine 100 MCG Tablet PO (04:30)
[2021-08-23 08:00] VITALS: BP 116/66; PULSE 75; RESP 16; TEMP 36.9; O2SAT 97
[2021-08-23] MEDS: Acetaminophen 500 MG Tablet 1000 MG PO (08:30)
--- NOTE | 2021-08-23 09:07 | PN.OBGYN_ITS ---
Subjective Subjective No issues overnight. Feels well. Denies heavy lochia. She is formula feeding her infant. OOB, ambulating and voiding without difficulty. Objective Data Objective Data Vital Signs: Vital Signs Temp Pulse Resp BP Pulse Ox 98.4 F 75 16 116/66 97 08/23/21 08:00 08/23/21 08:00 08/23/21 08:00 08/23/21 08:00 08/23/21 08:00 Oxygen Delivery Method Room Air Weight: 90.718 kg Body Mass Index (BMI) 32.3 Intake & Output: Intake and Output for Last 24 Hours 08/21/21 08/22/21 08/23/21 23:59 23:59 23:59 Intake Total 517.50 / 517.50 Output Total 200 / 200 250 / 250 Balance 317.50 / 317.50 -250 / -250 Lab / Micro Data Result Diagrams: 08/22/21 18:50 Labs: Laboratory Results - last 24 hr 08/22/21 18:50: WBC 17.0 H, RBC 4.66, Hgb 13.8, Hct 39.6, MCV 85.0, MCH 29.6, MCHC 34.8, RDW Std Deviation 42.1, RDW Coeff of Bridger 13.7, Plt Count 270, MPV 9.7, Immature Gran % (Auto) 1.600 H, Neut % (Auto) 81.3 H, Lymph % (Auto) 10.6 L , Terrell % (Auto) 5.9, Eos % (Auto) 0.2, Baso % (Auto) 0.4, Absolute Neuts (auto) 13.8 H, Absolute Lymphs (auto) 1.80, Nucleated RBC % 0 08/22/21 18:50: Blood Type A POSITIVE, Antibody Screen NEGATIVE Physical Exam Const alert, oriented x3 and no apparent distress Resp normal respiratory effort and normal air movement Cardio regular rate, regular rhythm, S1 normal heart sound and S2 normal heart sound GI normal to inspection, nondistended, normoactive bowel sounds, soft to palpation, non-tender and non-distended Narrative: lochia Uterus Palpation: uterus fundus firm and other OB fundus nontender Extremity no calf tenderness and no pedal edema Neuro oriented x3 Assessment & Plan (1) Vaginal delivery following previous section, delivered: PLAN: PPD#1 s/p 2VBAC doing well. A POS Formula feeding Routine care Plan for d/c home tomorrow (2) Precipitous delivery:
[2021-08-23] MEDS: NIFEdipine 30 MG Tablet PO (09:43)
[2021-08-23 10:00] VITALS: RESP 16
[2021-08-23 14:00] VITALS: BP 114/67; PULSE 77; RESP 16; TEMP 36.2; O2SAT 96
[2021-08-23 16:55] VITALS: BP 123/75; PULSE 80; RESP 16; TEMP 36.7; O2SAT 97
[2021-08-23 20:30] VITALS: BP 131/83; PULSE 82; RESP 16; TEMP 36.8; O2SAT 97
[2021-08-24 01:35] VITALS: BP 135/89; PULSE 74; RESP 16; TEMP 36.4; O2SAT 97
[2021-08-24] MEDS: Acetaminophen 500 MG Tablet 1000 MG PO (05:45)
[2021-08-24] MEDS: Levothyroxine 100 MCG Tablet PO (05:45)
[2021-08-24 09:13] VITALS: BP 125/77; PULSE 78; RESP 18; TEMP 36.4; O2SAT 98
--- NOTE | 2021-08-24 09:34 | DS.PCM_ITS ---
Providers Date of Admission: 08/22/21 Primary Care Physician: Betsey Primary Care Phys Reason For Visit: VAG Diagnosis Discharge Diagnosis (1) Vaginal delivery following previous section, delivered: Status: Acute Code(s): O34.219 - Maternal care for unspecified type scar from previous delivery (2) Precipitous delivery: Status: Acute Code(s): O62.3 - Precipitate labor Medications at Discharge Home Medications levothyroxine 50 mcg PO DAILY #30 cap 08/24/21 nifedipine 30 mg PO DAILY #30 tab 08/24/21 Hospital Course Operations None Summary of Care Provided Hospital Course: 35yo admitted at 40wga in active labor. She delivered precipitously with an uncomplicated . Her blood pressures were elevated and she was started on Nifedipine with improvement. Her course was o therwise uncomplicated. She was discharged to home on day #2. Physical Exam Const alert, oriented x3 and no apparent distress HEENT normocephalic Head and Scalp: atraumatic Resp normal respiratory effort and clear to auscultation bilaterally Cardio regular rate and regular rhythm GI normal to inspection, nondistended, normoactive bowel sounds, soft to palpation, non-tender and non-distended Narrative: fundus firm and nontender Extremity normal to inspection Psych mental status grossly normal Weight / BMI Weight Weight: 90.718 kg Body Mass Index (BMI) 32.3 ABG / Lab / Microbiology Data Result Diagrams: 08/22/21 18:50 D/C Instructions Discharge Diet: No restrictions Discharge Activity: Return to Normal Activity May resume sexual activity in: 4-6 weeks Lifting Restricted to (Lbs): 20 Call your doctor if you observe: Fever of 101 or Higher, Using more than 1 pad per hour, Shortness of breath, Chest pain, Calf discomfort, Uncontrolled pain and - (Persistent or severe headache) Please Follow Up With: Marquita Chew MD When: 3 weeks for telehealth follow up 6 weeks for visit Meaningful Use Info Meaningful Use Diagnoses (Choose all that apply): None applicable Discharge Plan Admission Admit Date/Time: 08/22/21 18:40 Primary Reason for Your Visit: Vaginal after section Attending Provider: John Magallanes Primary Care Provider: Care Physician,No Primary Instructions Patient Instructions: Depression Additional Instructions / Restrictions: Please continue your multivitamin. Discharge Orders/Prescriptions Prescriptions: New nifedipine 30 mg Tablet Extended Release 24hr 30 mg PO DAILY Qty: 30 RF: 3 levothyroxine 50 mcg capsule 50 mcg PO DAILY Qty: 30 RF: 5 Discontinued levothyroxine 50 MCG tablet 100 mcg PO DAILY RF: 0 Referrals / Follow Up: Care Physician,No Primary [Primary Care Provider] - Disposition Disposition (needs filled in before D/C Order can be placed): Home, Self Care
[2021-08-24] MEDS: NIFEdipine 30 MG Tablet PO (09:53)
== END 2021-08-24 12:10 | disposition home or self-care (01) | DRG 807 ==
PROVIDERS: Admitting Provider Obstetrics & Gynecology; Visit Provider Obstetrics & Gynecology
DX: O34.211 Maternal care for low transverse scar from previous cesarean delivery (principal); Z37.0 Single live birth; N85.8 Other specified noninflammatory disorders of uterus; O62.3 Precipitate labor; Z3A.40 40 weeks gestation of pregnancy; E03.9 Hypothyroidism, unspecified; O99.284 Endocrine, nutritional and metabolic diseases complicating childbirth; Z79.890 Hormone replacement therapy
CPT/HCPCS: 59025; 59050; 85025; 86850; 86900; 86901; 99218; J7120; G0378

== ENCOUNTER → 2023-02-04 | Outpatient (CLI) | payer SELFPAY ==
[2023-02-04 11:46] LABS: Absolute Neutrophil Count 3.6 X10^3/uL (2.0-7.7); Basophil# 0.04 X10^3/uL; Basophil% 0.7 % (0-1); Eosinophil# 0.18 X10^3/uL; Eosinophils% 3.3 % (0-5); Hematocrit 40.1 % (37-47); Lymphocyte % 23.9 % (19-41); Mean Corp Hgb Conc 32.4 g/dL (32-36); Mean Corpuscular Hgb 27.7 pg (27.0-32.0); Mean Corpuscular Volume 85.3 fL (81-99); Mean Platelet Vol. 8.7 fl (6.2-12.0); Monocyte# 0.32 X10^3/uL; Monocyte% 5.9 % (0-10); NRBC Flagged by Analyzer 0 % (0-5); Neutrophil # 3.58 X10^3/uL (2.7-7.7); Neutrophil % 65.8 % (47-70); Platelet Count 270 K/mm3 (150-450); RBC Distribution Width CV 13.4 % (11.6-14.6); RBC Distribution Width SD 42.5 fl (35.1-43.9); White Blood Count 5.4 K/mm3 (4.4-11.0)
[2023-02-04 13:24] LABS: ALB/GLOB Ratio 1.1 RATIO (0.9-2.4); AST(SGOT) 8 U/L (15-37); Alanine Aminotransfer ALT/SGPT 21 U/L (13-56); Alkaline Phosphatase 59 U/L (45-117); Anion Gap 6 (5-15); BUN 13 mg/dL (7-18); BUN/Creat Ratio 19.8 RATIO (10-20); Calcium,Total 9.2 mg/dL (8.5-10.1); Chloride 106 mmol/L (98-107); Creatinine, Serum 0.66 mg/dL (0.55-1.02); EST Glomerular Filtration Rate 108 mL/min (>60); Est Glom Filt Rate - Afr Amer 131 mL/min (>60); Globulin 3.8 g/dL (2.2-4.2); Glucose 100 mg/dL (74-106); Potassium 3.5 mmol/L (3.5-5.1); Protein, Total 7.8 g/dL (6.4-8.2); Sodium Level 139 mmol/L (136-145); hCG Titer Quant., Serum 593 mIU/mL (1-3)
== END | disposition home or self-care (01) ==
LOC: WOBLAB 11:25
PROVIDERS: Visit Provider Obstetrics & Gynecology
DX: N91.2 Amenorrhea, unspecified (principal)
CPT/HCPCS: 36415; 80053; 84702; 85025